=== PATIENT | female | born 1940 | race Asian ===

== ENCOUNTER 2016-06-12 | Outpatient (CLI) | payer MEDICARE, OTHER | END 2016-06-12 17:06 | disposition critical access hospital (66) | DX: K92.0 Hematemesis (principal) | CPT/HCPCS: A0425; A0427 ==

== ENCOUNTER 2016-06-12 17:26 | Inpatient (IN) | payer MEDICARE, OTHER ==
[2016-06-12] MEDS ORDERED: ONDANSETRON 4 MG/2 ML VIAL IVP STA (17:50)
[2016-06-12] MEDS ORDERED: PANTOPRAZOLE 80 MG in SODIUM CHLORIDE 0.9% 100ML 100 ML IV STA (17:51)
[2016-06-12] MEDS ORDERED: PANTOPRAZOLE 40 MG VIAL IVP STA (17:51)
[2016-06-12] MEDS ORDERED: ONDANSETRON 4 MG/2 ML VIAL ONE (18:08)
[2016-06-12] MEDS ORDERED: PANTOPRAZOLE 40 MG VIAL ONE (18:08)
[2016-06-12] MEDS ORDERED: PIPERACILLIN/TAZOBACTAM 4.5 GM in SODIUM CHLORIDE 0.9% MINIBAG 100 ML IV STA (18:16)
[2016-06-12] MEDS ORDERED: ONDANSETRON ODT 4 MG TABLET TL PRN (19:29)
[2016-06-12] MEDS ORDERED: LORazepam 2 MG/ML SYRINGE IVP PRN (19:29)
[2016-06-12] MEDS ORDERED: HALOPERIDOL 5 MG/ML VIAL IVP PRN (19:29)
[2016-06-12] MEDS ORDERED: CARBOXYMETHYLCELLULOSE OPHTH DROPS EACHEYE PRN (19:29)
[2016-06-12] MEDS ORDERED: MORPHINE SOL 10 MG/0.5 ML SYRINGE SL PRN (19:29)
[2016-06-12] MEDS ORDERED: ATROPINE 1% OPHTH DROPS 2 ML SL PRN (19:29)
[2016-06-13] MEDS ORDERED: SODIUM CHLORIDE FLUSH 0.9% 10 ML SYRINGE IVP PRN (00:10)
[2016-06-13] MEDS ORDERED: MORPHINE SOL 10 MG/0.5 ML SYRINGE SL PRN (00:26)
[2016-06-13] MEDS: SODIUM CHLORIDE FLUSH 0.9% 10 ML SYRINGE IVP SCH ×2 (06:10→15:17)
[2016-06-13] MEDS ORDERED: PANTOPRAZOLE 40 MG VIAL IVP SCH (07:00)
[2016-06-13] MEDS ORDERED: LORazepam 1 MG/0.5 ML ORAL SYRINGE PO PRN (19:09)
[2016-06-14] MEDS ORDERED: A & D OINTMENT 5 GM PACKET TOP ONE (22:16)
== END 2016-06-15 12:20 | disposition hospice, home (50) | DRG 65 ==
DX: I60.8 Other nontraumatic subarachnoid hemorrhage (principal); I60.9 Nontraumatic subarachnoid hemorrhage, unspecified; K92.0 Hematemesis; S00.83XA Contusion of other part of head, initial encounter; E78.00 Pure hypercholesterolemia, unspecified; H91.90 Unspecified hearing loss, unspecified ear; Z87.442 Personal history of urinary calculi; K92.2 Gastrointestinal hemorrhage, unspecified; R40.20 Unspecified coma; W19.XXXA Unspecified fall, initial encounter; Y92.002 Bathroom of unspecified non-institutional (private) residence as the place of occurrence of the external cause; I10 Essential (primary) hypertension; K26.9 Duodenal ulcer, unspecified as acute or chronic, without hemorrhage or perforation; E78.5 Hyperlipidemia, unspecified; F09 Unspecified mental disorder due to known physiological condition; Z79.82 Long term (current) use of aspirin; Z79.899 Other long term (current) drug therapy; Z66 Do not resuscitate

== ENCOUNTER 2016-06-15 | Outpatient (CLI) | payer MEDICARE, OTHER | END 2016-06-15 12:45 | disposition hospice, home (50) | DX: R40.20 Unspecified coma (principal) | CPT/HCPCS: A0425; A0428 ==